=== PATIENT | male | born 1950 | race Caucasian/White ===

== ENCOUNTER 2018-11-25 14:54 | Emergency (ER) | payer OTHER ==
[~2018-11-25] VITALS: Ht 172.7 cm; Wt 84.4 kg
--- NOTE | ~2018-11-25 | EKG ---
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
[2018-11-25] MEDS ORDERED: CITALOPRAM20 MG PO (15:22)
[2018-11-25] MEDS ORDERED: SIMVASTATIN80 MG PO (15:22)
[2018-11-25] MEDS ORDERED: LOSARTAN POTAS100 M1 PO (15:22)
[2018-11-25] MEDS ORDERED: METFORMIN HYDR500 MG PO (15:22)
[2018-11-25 15:59] LABS: BASO # 0.1 10*3/uL (0.0-0.1); BASO % 0.4 % (0.0-1.0); EOS # 0.1 10*3/uL (0.0-0.4); EOS % 0.8 % (1.0-4.0); HEMATOCRIT 42.7 % (42.0-52.0); HEMOGLOBIN 13.7 g/dl (14.0-18.0); LYMPH # 1.2 10*3/uL (1.3-4.4); LYMPH % 8.9 % (27.0-41.0); MEAN CELL VOLUME 88.4 fl (80.0-94.0); MEAN CORPUSCULAR HGB 28.4 pg (27.0-31.0); MEAN CORPUSCULAR HGB CONC 32.1 g/dl (33.0-37.0); MEAN PLATELET VOLUME 9.4 fl (9.6-12.3); MONO # 0.8 10*3/uL (0.1-1.0); MONO % 5.4 % (3.0-9.0); NEUT # 11.6 10*3/uL (2.3-7.9); NEUT % 83.9 % (47.0-73.0); PLATELET COUNT AUTOMATED 234 10*3/uL (130-400); RED BLOOD COUNT 4.83 10*6/uL (4.50-5.90); RED CELL DISTRI WIDTH 13.2 % (0-14.5); WHITE BLOOD COUNT 13.9 10*3/uL (4.8-10.8)
[2018-11-25 16:15] LABS: ALBUMIN 3.6 gm/dl (3.1-4.5); ALKALINE PHOSPHATASE 62 U/L (45-117); BUN 17 mg/dl (7-24); CHLORIDE 108 mmol/L (98-107); CPK 85 U/L (39-308); CREATININE 0.77 mg/dL (0.70-1.30); POTASSIUM 3.9 mmol/L (3.5-5.1); SGOT/AST 14 IU/L (3-35); SGPT/ALT 18 U/L (12-78); SODIUM 141 mmol/L (136-145); TOTAL PROTEIN 6.4 gm/dL (6.4-8.2); TROPONIN I 0.016 ng/ml (<0.045)
== END 2018-11-25 16:57 | disposition home or self-care (01) ==
LOC: ED 14:54
PROVIDERS: Emergency Medicine
DX: R55 Syncope and collapse (principal); R42 Dizziness and giddiness; I10 Essential (primary) hypertension; Z79.899 Other long term (current) drug therapy